=== PATIENT | male | born 1995 | race Caucasian/White ===

== ENCOUNTER 2019-01-12 15:27 | Emergency (ER) | payer OTHER ==
[~2019-01-12] VITALS: Ht 172.7 cm; Wt 59.5 kg
[2019-01-12 15:47] VITALS: BP 132/70
--- NOTE | 2019-01-12 16:16 | NUR ---
PT WALKED BACK FROM LOBBY TO ROOM AT THIS TIME. STEADY UPON AMBULATION NAD NOTED. SKIN PWD. RESP EVEN AND UNLABORED.
[2019-01-12] MEDS ORDERED: DIPH,PERTUSS(ACELL),TET VAC/PF 0.5 ML IM-VACC ONE ×2 (16:54→17:00)
[2019-01-12] MEDS ORDERED: LIDOCAINE-MPF 1%, 5ML ONE (16:54)
[2019-01-12] MEDS ORDERED: LIDOCAINE-MPF 1%, 5ML INFIL ONE (17:00)
[2019-01-12] MEDS ORDERED: NEOSPORIN OINT. PKT 1 PACKET ONE (17:50)
== END 2019-01-12 18:00 | disposition home or self-care (01) ==
LOC: ED 17:55
DX: S61.412A Laceration without foreign body of left hand, initial encounter (principal); F12.10 Cannabis abuse, uncomplicated; F17.200 Nicotine dependence, unspecified, uncomplicated; W26.0XXA Contact with knife, initial encounter; Y93.89 Activity, other specified; Y92.098 Other place in other non-institutional residence as the place of occurrence of the external cause; Y99.8 Other external cause status
CPT/HCPCS: 12042; 90471; 90715; 99284

== ENCOUNTER 2019-01-23 13:50 | Emergency (ER) | payer OTHER ==
[~2019-01-23] VITALS: Ht 165.1 cm; Wt 59.2 kg
[2019-01-23 13:55] VITALS: BP 140/98
--- NOTE | 2019-01-23 14:57 | NUR ---
Patient/Caregiver given discharge instructions and they have confirmed that they understand the instructions. Patient ambulatory with steady gait.
== END 2019-01-23 14:58 ==
LOC: ED 14:50
DX: S61.412D Laceration without foreign body of left hand, subsequent encounter (principal); X58.XXXD Exposure to other specified factors, subsequent encounter
CPT/HCPCS: 99282